=== PATIENT | female | born 1955 | race Two or more races ===

== ENCOUNTER 2018-10-24 10:36 | Outpatient (CLI) | payer OTHER | END 2018-10-24 10:37 | disposition home or self-care (01) | LOC: RAD 10:36 | DX: M25.562 Pain in left knee (principal) ==

== ENCOUNTER → 2020-03-07 09:15 | Outpatient (CLI) | payer OTHER | END | disposition home or self-care (01) | LOC: LAB 09:15 | PROVIDERS: ATTEND Orthopaedic Surgery | DX: D64.89 Other specified anemias (principal); E88.89 Other specified metabolic disorders; D68.8 Other specified coagulation defects; N39.0 Urinary tract infection, site not specified; Z22.322 Carrier or suspected carrier of Methicillin resistant Staphylococcus aureus ==

== ENCOUNTER 2020-03-07 09:40 | Outpatient (CLI) | payer OTHER | END 2020-03-07 09:52 | disposition home or self-care (01) | LOC: RAD 09:40 | PROVIDERS: ATTEND Orthopaedic Surgery | DX: M25.552 Pain in left hip (principal); Z76.89 Persons encountering health services in other specified circumstances ==

== ENCOUNTER 2020-03-27 06:44 | Day surgery (SDC) | payer OTHER ==
[~2020-03-27 06:44] MED LIST: CRESTOR40 MG PO; HUMALOG100 UNIT/2; LANTUS; ZESTRIL10 M1 PO
== END 2020-03-27 18:00 | disposition home or self-care (01) ==
LOC: CIR.AMB 06:44
PROVIDERS: ATTEND Orthopaedic Surgery
DX: M23.322 Other meniscus derangements, posterior horn of medial meniscus, left knee (principal); M23.352 Other meniscus derangements, posterior horn of lateral meniscus, left knee; M23.342 Other meniscus derangements, anterior horn of lateral meniscus, left knee; M12.262 Villonodular synovitis (pigmented), left knee; M22.42 Chondromalacia patellae, left knee; M22.12 Recurrent subluxation of patella, left knee; Z20.828 Contact with and (suspected) exposure to other viral communicable diseases